=== PATIENT | female | born 1975 | race Caucasian/White ===

== ENCOUNTER 2023-01-16 19:12 | Emergency (ER) | payer BC ==
[2023-01-16 19:24] VITALS: BP 160/88
[2023-01-16] MEDS ORDERED: DEXAMETHASONE 10 MG/ML VIAL PO ONE (20:17)
[2023-01-16] MEDS ORDERED: CHERRY SYRUP 10 ML UDC PO ONE (20:17)
--- NOTE | 2023-01-16 20:35 | ED Physician Documentation ---
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 No chest pain or shortness of breath, no fever, no abdominal pain, no dysuria, no vomiting.No calf tenderness. No recent travel or immobilization. Review of Systems Constitutional: denies: Fever Cardiac: denies: Chest pain / pressure Respiratory: denies: Dyspnea GI: denies: Abdominal Pain, Vomiting Skin: reports: Rash Musculoskeletal: reports: Extremity swelling PD PAST MEDICAL HISTORY - Present Medications Home Medications: Ambulatory Orders Medication Instructions Recorded Confirmed EPINEPHrine [Epinephrine] 0.3 mg IJ ONCE PRN #2 each 01/16/23 - Allergies Allergies/Adverse Reactions: Allergies Allergy/AdvReac Type Severity Reaction Status Date / Time No Known Drug Allergies Allergy Verified 01/16/23 19:16 PD ED PE NORMAL - General General: Alert and oriented X 3, No acute distress, Well developed/nourished - HEENT HEENT: Atraumatic, Moist mucous membranes, Pharynx benign, Other (Mild uvular edema, normal speech) - Neck Neck: Supple, no meningeal sign - Cardiac Cardiac: RRR, Strong equal pulses - Respiratory Respiratory: No respiratory distress, Clear bilaterally - Extremities Extremities: No calf tenderness / cord, Other (Mild nonpitting edema to bilateral ankles; Mild swelling to dorsum of bilateral hands with faint blanching erythema) - Neuro Neuro: Alert and oriented X 3, No motor deficit, Normal speech Results - Vitals Vitals: Vital Signs - 24 hr 01/16/23 19:16 Temperature 36.5 C Heart Rate 84 Respiratory 16 Rate Blood Pressure 160/88 H O2 Saturation 100 Oxygen O2 Source Room air - Labs Labs: Laboratory Tests 01/16/23 20:25 Sodium 136 Potassium 3.6 Chloride 103 Carbon Dioxide 30 Anion Gap 3.0 L BUN 13 Creatinine 0.7 Estimated GFR (MDRD) 90 Glucose 97 Calcium 8.6 PD Medical Decision Making - ED course Complexity details: reviewed results, re-evaluated patient, d/w patient ED course: Patient presenting for evaluation of mild swelling to bilateral ankles, hands. Mild swelling noted on exam to uvula. His speech is normal. No signs of airway compromise. Vital signs appear stable. Concern for possible allergic reaction. Patient given a dose of Decadron. She is also been taking Claritin at home. No worsening symptoms here and patient is stated that her symptoms were already improving throughout the day prior to any intervention here. We will have patient continue on antihistamines as needed as well as need for close follow-up. 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 Chemistries were reviewed with no signs of renal impairment as cause of her swelling. Patient is counseled on strict return precautions. Departure - Departure Disposition: Home, Self Care Clinical Impression: Swollen ankles, Allergic reaction Condition: Stable Instructions: ED Allergic Reaction General Other Prescriptions: EPINEPHrine [Epinephrine] 0.3 mg IJ ONCE PRN #2 each PRN Reason: Allergy Symptoms Comments: Your symptoms today Are concerning for an allergic reaction. At this time it is unclear what your body could be reacting to. We have given you a dose of a long-acting steroid called Decadron.Would recommend continuing with Claritin daily for the next several days. She can also use Benadryl as needed for any itching. I would also recommend close follow-up with your primary care provider. Your creatinine (Kidney test) Was normal. I have sent a prescription for EpiPen to [facility] in [place]. Please return to the emergency department if you develop any worsening symptoms. Discharge Date/Time: 01/16/23 21:06
[2023-01-16 20:40] LABS: CALCIUM 8.6 mg/dL (8.5-10.3); CREATININE 0.7 mg/dL (0.4-1.0); POTASSIUM 3.6 mmol/L (3.5-5.0)
== END 2023-01-16 21:06 | disposition home or self-care (01) ==
LOC: ED 19:12
DX: T78.40XA Allergy, unspecified, initial encounter (principal); M79.89 Other specified soft tissue disorders
CPT/HCPCS: 36415; 80048; 99283; A9270

== ENCOUNTER 2023-05-25 13:20 | Emergency (ER) | payer BC ==
--- NOTE | 2023-05-25 14:12 | XRAY Report ---
PROCEDURE: Chest 2 View X-Ray INDICATIONS: Cough TECHNIQUE: 2 views of the chest were acquired. COMPARISON: None. FINDINGS: Surgical changes and devices: None. Lungs and pleura: No pleural effusions or pneumothorax. Lungs are clear. Mediastinum: Mediastinal contours appear normal. Heart size is normal. Bones and chest wall: No suspicious bony lesions. Overlying soft tissues appear unremarkable. IMPRESSION: No acute cardiopulmonary process. Reviewed by: Chrissy Mcclellan MD on 05/25/2023 2:10 PM [facility] Approved by: Chrissy Mcclellan MD on 05/25/2023 2:10 PM [facility] Station ID: [id number]
[2023-05-25] MEDS ORDERED: ALBUTEROL 1 PUFF INH STA (16:15)
--- NOTE | 2023-05-25 16:15 | ED Physician Documentation ---
History of Present Illness - Stated complaint Stated Complaint: CHEST PX,H/A,NAUSEA S/P INHALING FACE POWDER - Chief complaint Chief Complaint: Resp - Additonal information Additional information: 47-year-old female here for cough, concern of asthma exacerbation and headache. She does have a history of migraines and is scheduled to take her injection in 48 hours time. Yesterday in the car she had opened a new make-up powder and accidentally inhaled the powder which caused a coughing fit and wheeze. She does not have albuterol anymore. The coughing fit has exacerbated her migraine. No fevers. No hemoptysis. Review of Systems Constitutional: denies: Fever Respiratory: reports: Dyspnea, Cough, Wheezing PD PAST MEDICAL HISTORY - Past Medical History Past Medical History: Yes Cardiovascular: Hypertension, High cholesterol Other Past Medical History: psoriatic arthritis - Past Surgical History Past Surgical History: Yes Ortho: Other - Present Medications Home Medications: Ambulatory Orders Medication Instructions Recorded Confirmed EPINEPHrine [Epinephrine] 0.3 mg IJ ONCE PRN #2 each 01/16/23 Albuterol Sulf [Ventolin Hfa 1 - 2 puffs INH Q4HR PRN #1 each 05/25/23 Inhaler] Dapsone 25 mg PO BID 05/25/23 05/25/23 Omeprazole Magnesium 20 mg PO DAILY 05/25/23 05/25/23 Pramipexole Di-HCl [Mirapex] 0 mg PO DAILY 05/25/23 05/25/23 Rosuvastatin Calcium [Crestor] 10 mg PO DAILY 05/25/23 05/25/23 Semaglutide [Wegovy] 2.4 mg SQ 05/25/23 - Allergies Allergies/Adverse Reactions: Allergies Allergy/AdvReac Type Severity Reaction Status Date / Time No Known Drug Allergies Allergy Verified 01/16/23 19:16 - Social History Does the pt smoke?: No Smoking Status: Never smoker PD ED PE NORMAL - General General: Alert and oriented X 3, No acute distress - Cardiac Cardiac: RRR, No murmur - Respiratory Respiratory: No respiratory distress, Clear bilaterally - Abdomen Abdomen: Normal bowel sounds, Soft - Derm Derm: Normal color, Warm and dry, No rash - Extremities Extremities: No deformity Results - Vitals Vitals: Vital Signs - 24 hr 05/25/23 13:47 Temperature 36.7 C Heart Rate 100 Respiratory 16 Rate Blood Pressure 135/85 H O2 Saturation 97 Oxygen O2 Source Room air - Rads (name of study) cxr Relevant Findings:: Final report received (no acute cardiopulmonary process) PD Medical Decision Making - ED course Complexity details: reviewed results, re-evaluated patient, d/w patient ED course: 47-year-old female here for evaluation of cough and headache. Has a history of asthma but rarely has to use an inhaler. Does not currently on an inhaler. She accidentally inhaled make up the dust yesterday afternoon which caused a coughing fit and then an exacerbation of her migraines. Here in the emergency department she appears very well. She has no worrisome vital sign abnormality or hypoxia. Cardiopulmonary auscultation was essentially unremarkable without any rhonchi wheeze or crackles. A chest x-ray showed no findings of pneumonia or focal consolidation. Patient felt she would benefit from albuterol and as such respiratory therapy did give her albuterol here in the ER and I sent a prescription to her preferred pharmacy. She can continue to take her usual medications for her migraine and is scheduled for her next injection in 48 hours. Clinically patient does not have findings suggestive pneumonia or severe chemical pneumonitis. Discharged home in stable condition with usual emergent return precautions discussed. Departure - Departure Disposition: 01 Home, Self Care Clinical Impression: History of asthma, Inhalation injury Cough Qualifiers: Cough type: acute Qualified Code(s): R05.1 - Acute cough Condition: Stable Record reviewed to determine appropriate education?: Yes Prescriptions: Albuterol Sulf [Ventolin Hfa Inhaler] 1 - 2 puffs INH Q4HR PRN #1 each PRN Reason: Shortness Of Air/Wheezing Comments: The chest x-ray today was normal and did not show any findings suggest a pneumonia. When we listen your heart and lungs they sound very clear. Your vital signs and oxygen levels were normal. I expect that the breathing is just going to simply continue to get better over the next several days but we have given you some albuterol here in the ER and I sent a prescription for albuterol to the [facility] in [place]. You can continue to take your usual medications for headaches. Return to the ER for any sudden severe chest pain or severe respiratory distress.
[2023-05-25 16:45] VITALS: BP 119/74; O2SAT 98
== END 2023-05-25 17:01 | disposition home or self-care (01) ==
LOC: ED 13:20
DX: R05.1 Acute cough (principal); J45.909 Unspecified asthma, uncomplicated; T17.998A Other foreign object in respiratory tract, part unspecified causing other injury, initial encounter; W44.8XXA Other foreign body entering into or through a natural orifice, initial encounter; I10 Essential (primary) hypertension; E78.00 Pure hypercholesterolemia, unspecified; Z79.899 Other long term (current) drug therapy
CPT/HCPCS: 94640; 94664; 99283; 99284